=== PATIENT | female | born 1960 | race Caucasian/White ===

== ENCOUNTER 2021-01-22 01:37 | Day surgery (SDC) | payer BC, SELFPAY ==
--- NOTE | 2021-01-16 13:07 | P.HP_ITS ---
H&P: HPI History of Present Illness Date/Time: 01/16/21 13:07 this is a 60-year-old female with postmenopausal bleeding. She underwent a uterine ablation about 6 years ago and had no periods then had some vaginal bleeding. Her primary care physician attempted an endometrial biopsy in the office and she had a stenosed cervix. Her Pap smears have been normal. Risks and benefits of this procedure have been reviewed Chief Complaint: postmenopausal bleeding Review of Systems Review of Systems: All systems reviewed & are unremarkable except as noted in HPI and below Exam Const: General: no acute distress Eyes: General: appearance normal, both eyes and all related structures Neck: Neck: supple and no JVD Thyroid: thyroid normal Resp: Effort & Inspection: normal respiratory effort Auscultation: clear to auscultation bilaterally Cardio: Rate: regular rate Rhythm: regular rhythm GI: Inspection: non-distended GI Palp: Yes Soft to palpation, No Tenderness to palpation present (GI) and No Guarding due to palpation present (GI) Auscultation: normal bowel sounds : External Female Exam: normal external appearance Speculum Exam - Vagin a: normal appearance of the vagina Speculum Exam - Cervix: normal appearance of the cervix Bimanual exam- vagina & uterus: non-tender Bimanual Exam- Adnexa, other: normal adnexae Skin: General skin exam: no rashes or lesions noted Extrem: General: normal to inspection and no edema Psych: Mental Status: mental status grossly normal Affect: normal affect Assessment and Plan Additional Plan impression: Postmenopausal bleeding and a patient status post ablation Plan: Hysteroscopy/dilatation and curettage
[2021-01-19 09:51] VITALS: BMI 25.8
--- NOTE | 2021-01-22 06:14 | WPDHPUPDATE1 ---
History and Physical Update Update Date/Time: 01/22/21 06:14 History and Physical has been reviewed, including an updated exam of the patient. There are NO changes in the patient's condition. Risks, benefits, and alternatives have been discussed and questions answered. Patient agrees to proceed with procedure.
[2021-01-22] MEDS: ACETAMINOPHEN 500 MG TABLET 1000 MG PO (11:15)
[2021-01-22] MEDS: LACTATED RINGERS 1,000 ML 30 ML IV CONT (11:16)
[2021-01-22 11:21] VITALS: BP 133/75; PULSE 94; TEMP 36.6; O2SAT 99
--- NOTE | 2021-01-22 11:25 | WPDANESEPPF ---
Anes - Initial Pre Proc Eval Procedure: Operation Date: 01/22/21 12:30 Proposed Procedures p Hysteroscopy, Dilation and Curettage - Franklin De Jesus MD Date/Time: 01/22/21 11:25 Surgeon: Franklin De Jesus MD Pre Op Diagnosis: post menopausal bleeding Patient Data Age: 60 Gender: F Height: 1.65 m Weight: 72.6 kg Last Vital Signs Temp 36.6 C 01/22/21 11:21 Pulse 94 01/22/21 11:21 BP 133/75 01/22/21 11:21 Pulse Ox 99 01/22/21 11:21 Allergies Allergy/AdvReac Type Severity Reaction Status Date / Time BEE STINGS Allergy Nausea and Uncoded 01/22/21 10:54 Vomiting / TO PASSING OUT Home Medications Medication Instructions Recorded Confirmed Type clobetasol 0.05 applic TOPICAL DAILY 01/19/21 01/19/21 History cyclobenzaprine 10 mg TID PRN 01/19/21 01/22/21 History hydrocodone-acetaminophen 1 tablet Q6H PRN 01/19/21 01/22/21 History ibuprofen 800 mg TID PRN 01/19/21 01/19/21 History metoprolol succinate 50 mg PO QAM 01/19/21 01/22/21 History minoxidil [Rogaine Extra Strength 1 ml TOPICAL BID 01/19/21 01/19/21 History for Men] pimecrolimus 1 applic TOPICAL BID 01/19/21 01/19/21 History sertraline 200 mg HS 01/19/21 01/22/21 History tramadol 50 mg PO Q6H PRN 01/19/21 01/19/21 History trazodone 200 mg HS 01/19/21 01/22/21 History hydrocodone-acetaminophen 1 tablet PO Q4H PRN #14 tablet 01/22/21 Rx Patient hx anesthesia problems: none Family hx anesthesia problems: hx of malignant hyperthermia PMFSH Past Medical History Medical History Depression Muscular dystrophy Tachycardia Social History Social History Smoking status: Never smoker Second hand tobacco smoke exposure: No Alcohol intake: never Substance use: never Substance use type: does not use Living arrangements: with family Spiritual care concerns: No Anes - Eval Final PreProcedure Day of Procedure 01/22/21 11:25 Patient weight: overweight Heart: regular rate and rhythm Lungs: clear to auscultation Airway: Mallampati scale class II Neurological: alert and oriented Last oral intake: >/= 8 hours ASA classification: III Emergent: no Anesthetic plan: proceed Anesthesia type and monitoring: general GIVS and standard monitoring Informed Consent: The patient's anesthetic plan and its attendant risks and benefits were discussed with the patient/family/POA. Questions were solicited and answers provided to the satisfaction of the patient/family/POA.
[2021-01-22 11:30] LABS: Hematocrit 41.4 % (37.0-47.0)
--- NOTE | 2021-01-22 12:51 | W.PM.PROC2 ---
Procedure Note - Detailed Date of Procedure 01/22/21 Pre-op Diagnosis post menopausal bleeding Post-op Diagnosis same Procedure Performed Hysteroscopy / dilatation and curettage Surgeon Franklin De Jesus MD Anesthesia MAC and local Indications this is a 60-year-old female who noticed some spotting Findings scarred anterior the uterus. No evidence of abnormality seen Description of Procedure the patient was prepped draped in the normal sterile fashion placed in the dorsal lithotomy position. Under excellent l IV anesthetic the cervix was grasped with a single-tooth tenaculum after she was prepped and draped. 2.5cc of 1% xylocaine anesthesia placed at 2, 4, 6, 8 of the cervix. Uterus sounded to 7cm. Serial dilatation with fragmented dilators performed followed passes of 5mm visualizing hysteroscope using normal saline as visualizing medium. The a lot of scar tissue present from the previous the ablation but no abnormal appearance. Uterus was then scraped over the entire 360? removing a small amount of tissue. When no further tissue removed the instruments removed and all were accounted for. She went to recovery in satisfactory condition. All sponge, needle, instrument counts were correct Estimated Blood Loss 5 Drains No Packing No Pathology yes Complications No immediate complications Condition stable Disposition PACU
[2021-01-22 12:55] VITALS: BP 132/74; PULSE 78; RESP 14; O2SAT 95
[2021-01-22 13:25] VITALS: BP 131/78; PULSE 78; RESP 14
[2021-01-22 13:55] VITALS: BP 117/72; PULSE 70; RESP 14
[2021-01-22] MEDS: oxyCODONE HCL (*CRX) 5 MG TAB IR PO (14:02)
[2021-01-22 14:15] VITALS: BP 116/61; PULSE 70; RESP 14
== END 2021-01-22 14:25 | disposition home or self-care (01) ==
PROVIDERS: PCP Family Medicine; Visit Provider Obstetrics & Gynecology
PROC: 0U5B8ZZ Destruction of Endometrium, Via Natural or Artificial Opening Endoscopic (ICD-10-PCS; CPT 58563; principal; 2021-01-22 12:30)
DX: N92.4 Excessive bleeding in the premenopausal period (principal); F32.9 Major depressive disorder, single episode, unspecified; G71.00 Muscular dystrophy, unspecified; R00.0 Tachycardia, unspecified
CPT/HCPCS: 58558; 36415; 85014; 85018; 88305; A9270; J2250; J2405; J2704; J3010; J7030; J7120